=== PATIENT | male | born 2005 | race Caucasian/White ===

== ENCOUNTER 2024-11-26 12:53 | Emergency (ER) | payer MEDICAID ==
[~2024-11-26] VITALS: Ht 182.9 cm; Wt 75.0 kg
[~2024-11-26 12:53] MED LIST: POLY119P2 MT
[2024-11-26 12:55] VITALS: O2SAT 98
[2024-11-26 13:01] VITALS: BP 115/60; PULSE 99; RESP 18; TEMP 36.9; O2SAT 98
== END 2024-11-26 14:46 | disposition home or self-care (01) ==
LOC: ER 12:53
DX: S73.005D Unspecified dislocation of left hip, subsequent encounter (principal); X58.XXXD Exposure to other specified factors, subsequent encounter
CPT/HCPCS: 99281